=== PATIENT | female | born 1955 | race Caucasian/White ===

== ENCOUNTER 2022-08-11 14:37 | Outpatient (CLI) | payer MEDICARE ==
--- NOTE | 2022-08-16 11:29 | Mammography Report ---
BILATERAL DIGITAL SCREENING MAMMOGRAM 3D/2D: 08/11/2022 CLINICAL: Routine screening. Comparison is made to exams dated: 03/21/2012 mammogram, 03/07/2011 mammogram, 12/15/2008 mammogram, 12/07 mammogram, and 12/17/2006 mammogram - [facility]. Both breasts are almost entirely fatty (category a/<25% glandular tissue). No significant masses, calcifications, or other findings are seen in either breast. There has been no significant interval change. IMPRESSION: NEGATIVE There is no mammographic evidence of malignancy. A 1 year screening mammogram is recommended. Based on the Tyrer Cuzick model (a risk assessment model) the patients lifetime risk is 4.9% and her 10 year risk is 2.3%. According to the ACR, ACS, and NCCN guidelines, an annual breast MRI exam grady g with mammogram is recommended if the patients lifetime risk is 20% or greater. This exam was interpreted at Station ID: [id number]. NOTE: For mammograms, a report in lay terms will be sent to the patient. Approximately 15% of breast malignancies will not be visualized mammographically. In the management of a palpable breast mass, a negative mammogram must not discourage biopsy of a clinically suspicious lesion. Electronically Signed By: Vivian alberts/nasima:08/15/2022 10:31:38 ACR BI-RADS Category 1: Negative 3341F PARENCHYMAL PATTERN: (F) - The breast(s) demonstrate(s) diffuse fatty replacement. BI-RADS CATEGORY: (1) - 1 RECOMMENDATION: (ANNUAL) - Recommend routine annual screening mammography. [id number] 1 year screening LATERALITY: (B)
== END 2022-08-11 14:38 | disposition home or self-care (01) ==
LOC: DI 14:37
PROVIDERS: ATTEND Nurse Practitioner Family
DX: Z12.31 Encounter for screening mammogram for malignant neoplasm of breast (principal)

== ENCOUNTER 2022-08-11 14:40 | Outpatient (CLI) | payer MEDICARE ==
--- NOTE | 2022-08-11 17:43 | DEXA Report ---
PROCEDURE: Dexa Spine and/or Hip INDICATIONS: POST MENOPAUSAL TECHNIQUE: Dual energy x-ray absorptiometry (DXA) was performed on a [employer] System. Regions measur ed are the AP Spine, femoral neck, and if needed forearm. COMPARISON: None. FINDINGS: Lumbar Spine: Bone Mineral Density 1.122 g/cm/cm,T score -0.5, normal. Left Femoral Neck: Bone Mineral Density 0.686 g/cm/cm, T score -2.5, osteoporosis. Left Hip: Bone Mineral Density 0.751 g/cm/cm,T score -2.0, osteopenia. (T score greater or equal to -1.0: NORMAL) (T score from -1.1 to -2.4: OSTEOPENIA) (T score less than or equal to -2.5 to: OSTEOPOROSIS) Impression: Osteoporosis. Patients with diagnosis of osteoporosis or osteopenia should have regular bone mineral density assess ment. For those eligible for Medicare, routine testing is allowed once every 2 years. Testing frequ ency can be increased for patients who have rapidly progressing disease or for those who are receivin g medical therapy to restore bone mass. Reviewed by: Rolando Chong MD on 08/11/2022 5:42 PM PST Approved by: Rolando Chong MD on 08/11/2022 5:42 PM PST Station ID: [id number]
== END 2022-08-11 14:41 | disposition home or self-care (01) ==
LOC: DI 14:40
PROVIDERS: ATTEND Nurse Practitioner Family
DX: Z78.0 Asymptomatic menopausal state (principal); M81.0 Age-related osteoporosis without current pathological fracture